=== PATIENT | female | born 1995 | race Two or more races ===

== ENCOUNTER 2023-07-19 05:34 | Observation (INO) | payer MEDICAID, OTHER ==
[~2023-07-19] VITALS: Ht 165.1 cm; Wt 82.3 kg
[2023-07-19 05:44] VITALS: BP 129/81; PULSE 99; RESP 20; O2SAT 98
[2023-07-19 06:30] LABS: Basophils # (auto) 0 10 ^3/uL (0-0.2); Basophils % (auto) 0.6 % (0.0-2.0); Eosinophils # (auto) 0.2 10 ^3/uL (0-0.8); Eosinophils % (auto) 2.9 % (0.0-7.0); Hematocrit 36.3 % (36.0-46.0); Hemoglobin 12.4 g/dL (12.2-16.2); Lymphocytes # (auto) 1.6 10 ^3/uL (0.4-5.4); Mean Corpuscular Hemoglobin 28.6 pg (28.0-32.0); Mean Corpuscular Volume 84.1 fL (80.0-100.0); Monocytes # (auto) 0.4 10 ^3/uL (0-1.3); Monocytes % (auto) 5.1 % (0.0-12.0); Neutrophils # (auto) 4.8 10 ^3/uL (1.6-8.6); Neutrophils % (auto) 68.4 % (37.0-80.0); Red Blood Cells 4.32 10^6/uL (4.0-5.20); Red Cell Distribution Width 15.8 % (11.8-14.3)
[2023-07-19 06:47] LABS: Alanine Aminotransferase 25 U/L (7-40); Albumin 4.1 g/dL (3.2-4.8); Alkaline Phosphatase 125 U/L (46-116); Anion Gap 9 (5-15); Aspartate Aminotransferase 23 U/L (13-40); Bilirubin, Total 0.3 mg/dL (0.2-1.0); Calcium 8.9 mg/dL (8.7-10.4); Carbon Dioxide 21 mmol/L (20-30); Chloride 107 mmol/L (98-107); Glucose 93 mg/dL (74-106); Magnesium 1.8 mg/dL (1.6-2.6); Potassium 3.4 mmol/L (3.5-5.1); Sodium 137 mmol/L (136-145)
[2023-07-19 06:48] LABS: Total Protein 6.6 g/dL (5.7-8.2)
[2023-07-19 07:07] LABS: BUN/Creatinine Ratio 8.2 (10.0-20.0); Blood Urea Nitrogen < 5 mg/dL (9-23)
[2023-07-19 08:12] LABS: Urine Bacteria FEW /hpf (None Seen); Urine Blood TRACE /uL (Negative); Urine Clarity Clear (Clear); Urine Color Yellow (Yellow); Urine Protein, UAD TRACE (Negative); Urine Specific Gravity 1.014 (1.001-1.035); Urine Urobilinogen Normal (Negative); Urine WBC 34 /hpf (0 - 5)
[2023-07-19] MEDS ORDERED: cefTRIAXone 1GM/50ML D5W 50 ML IV ONE (09:15)
[2023-07-19] MEDS ORDERED: AZITHROMYCIN 250 MG TAB PO ONE (09:45)
[2023-07-19 10:16] LABS: Amphetamine Screen, Urine Neg (NEGATIVE); Barbiturate Scree,Urine Neg (NEGATIVE)
[2023-07-19 10:17] LABS: Benzodiazephine Screen, Urine Neg (NEGATIVE); Cannabinoid Screen, Urine Neg (NEGATIVE); Cocaine Screen, Urine Neg (NEGATIVE); Opiate Scree,Urine Neg (NEGATIVE); Phencyclidine Screen, Urine Neg (NEGATIVE)
[2023-07-19 10:27] LABS: INR 0.91 (0.9-1.15); Partial Thromboplastin Time 30.1 SEC (24.5-34.5); Prothrombin Time 9.8 sec (9.3-11.8)
[2023-07-19 10:30] LABS: Fern Testing Positive
[2023-07-19] MEDS ORDERED: PREN-96 PO (10:54)
[2023-07-19] MEDS ORDERED: LACTATED RINGER'S 1,000 ML IV ONE (11:30)
== END 2023-07-19 11:16 | disposition home or self-care (01) ==
LOC: ER 05:34 → LDRP 08:50
PROVIDERS: ADMIT Obstetrics & Gynecology; ATTEND Obstetrics & Gynecology
DX: O42.912 Preterm premature rupture of membranes, unspecified as to length of time between rupture and onset of labor, second trimester (principal); O40.2XX0 Polyhydramnios, second trimester, not applicable or unspecified; O23.42 Unspecified infection of urinary tract in pregnancy, second trimester; O99.284 Endocrine, nutritional and metabolic diseases complicating childbirth; O09.12 Supervision of pregnancy with history of ectopic pregnancy, second trimester; N30.00 Acute cystitis without hematuria; E87.6 Hypokalemia; Z3A.18 18 weeks gestation of pregnancy; Z79.899 Other long term (current) drug therapy
CPT/HCPCS: 36415; 76805; 80053; 80307; 81001; 83735; 84702; 85025; 85610; 85730; 94760; 96360; 96361; 99284; G0378; Q0114

== ENCOUNTER 2024-01-02 10:27 | Emergency (ER) | payer MEDICAID ==
[~2024-01-02] VITALS: Ht 165.1 cm; Wt 81.6 kg
[~2024-01-02 10:27] MED LIST: PREN-96 PO
[2024-01-02] MEDS: HYDROcodone-ACET 5/325MG TAB PO ONE (11:30)
[2024-01-02 11:31] VITALS: BP 146/81; PULSE 89; RESP 20; TEMP 98.3; O2SAT 100
[2024-01-02] MEDS ORDERED: IBUP-1455 PO (11:47)
[2024-01-02] MEDS ORDERED: ACET500T58 PO (11:47)
== END 2024-01-02 12:14 | disposition home or self-care (01) ==
LOC: ER 10:27
DX: S93.601A Unspecified sprain of right foot, initial encounter (principal); S83.91XA Sprain of unspecified site of right knee, initial encounter; W18.39XA Other fall on same level, initial encounter; Y93.41 Activity, dancing; Y92.89 Other specified places as the place of occurrence of the external cause; Y99.8 Other external cause status
CPT/HCPCS: 73562; 73630